=== PATIENT | female | born 1960 | race Caucasian/White ===

== ENCOUNTER 2022-09-15 09:16 | Day surgery (SDC) | payer OTHER ==
[~2022-09-15] VITALS: Ht 147.3 cm; Wt 72.7 kg
[2022-09-15 08:45] LABS: COVID AG,FIA SOURCE NASAL SWAB
[~2022-09-15 09:16] MED LIST: SODIUM CHLORIDE 0.9% 1,000 ML ONE
[2022-09-15] MEDS ORDERED: LIDOCAINE/PF 2% 5 ML SYRINGE IVP ONE (09:17)
[2022-09-15] MEDS ORDERED: PROPOFOL 1% 20 ML VIAL IVP ONE (09:17)
== END 2022-09-15 11:35 | disposition home or self-care (01) ==
LOC: SURGERY 09:16
PROVIDERS: ATTEND Internal Medicine Gastroenterology
DX: K62.1 Rectal polyp (principal); K64.0 First degree hemorrhoids; Z20.822 Contact with and (suspected) exposure to COVID-19; Z79.899 Other long term (current) drug therapy; Z98.890 Other specified postprocedural states; Z86.010 Personal history of colon polyps; Z79.82 Long term (current) use of aspirin; Z90.49 Acquired absence of other specified parts of digestive tract
CPT/HCPCS: 45380; 87426; C1769; J2704; J3490; J7030; C9803; 88305